=== PATIENT | female | born 1995 | race Hispanic/Latino ===

== ENCOUNTER 2021-02-12 18:28 | Emergency (ER) | payer OTHER ==
[2021-02-12] MEDS ORDERED: IBUPROFEN 600 MG TABLET ONE (20:13)
== END 2021-02-12 20:24 | disposition home or self-care (01) ==
LOC: EDH 18:28
DX: S93.401A Sprain of unspecified ligament of right ankle, initial encounter (principal); X58.XXXA Exposure to other specified factors, initial encounter; Y93.89 Activity, other specified; Y92.89 Other specified places as the place of occurrence of the external cause; Y99.8 Other external cause status
CPT/HCPCS: 73610